=== PATIENT | male | born 2000 | race Caucasian/White ===

== ENCOUNTER 2023-12-29 08:08 | Emergency (ER) | payer OTHER ==
[~2023-12-29] VITALS: Ht 175.3 cm; Wt 124.7 kg
[2023-12-29 08:19] VITALS: BP 146/87; PULSE 92; RESP 18; TEMP 97.9; O2SAT 98
[2023-12-29 09:59] VITALS: BP 146/87; PULSE 92; RESP 18; TEMP 97.9; O2SAT 98
== END 2023-12-29 09:58 | disposition left against medical advice (07) ==
LOC: MED 08:08
DX: R07.81 Pleurodynia (principal)
CPT/HCPCS: 71101; 81002; 99283